=== PATIENT | female | born 1935 | race Caucasian/White ===

== ENCOUNTER 2019-04-07 09:07 | Emergency (ER) | payer SELFPAY ==
[2019-04-07 09:41] VITALS: BMI 24.4
--- NOTE | 2019-04-07 10:16 | PDOC ---
History of Present Illness - General Chief Complaint: Revisit,Radiology Variance Stated Complaint: CELLULITIES - History of Present Illness Initial Comments: Janki Ventura is an 83yo woman with a PMH of HTN, PAD s/p Rt AKA, DM2 with neuropathy who presents from [facility] due to a report of a left PT occlusion on arterial duplex compelted yesterday. Ms Ventura reports that she has had redness and swelling in the left leg for the past 1.5 months, and she had a test completed yesterday that showed a blood clot. Per nursing staff at [facility], Ms Ventura has been on antibiotics for LLE cellulitis. Due to her known PAD and a left posterior calf ulcer, she was sent yesterday for an arterial duplex. The duplex indicated occlusion of the left PT and 50% stenosis of the left common femoral a. The SNF sent her to the ED for additional evaluation, though no one at the facility was aware of any acute change in Ms Ventura' condition. Past History - Past Medical History Allergies/Adverse Reactions: Allergies Allergy/AdvReac Type Severity Reaction Status Date / Time No Known Allergies Allergy Verified 04/07/19 09:33 Cardiac Disorders: Yes (peripheral vascular disease. polyneuropathy.) COPD: Yes HTN: Yes Other medical history: vit D, peripheral vascular disease - Psycho Social/Smoking Cessation Hx Smoking History: Never smoked Have you smoked in the past 12 months: No Information on smoking cessation initiated: No Hx Alcohol Use: No Drug/Substance Use Hx: No Review of Systems - Review of Systems Comments:: General: No fevers, no chills, no weight or appetite change, no malaise HEENT: No changes in vision, no changes in hearing, no congestion, no sore throat CV: No chest pain, no palpitations, no LE edema Pulm: No SOB, no cough, no wheezing GI: No nausea or vomiting, no change in bowel habits, no melena : No frequency, no urgency, no dysuria Musc: No back pain, no joint swelling, no recent injury Skin: No rash, no lesions, no erythema Endo: No excessive thirst, no heat/cold intolerance Heme: No unusual bruising or bleeding, no swollen glands Neuro: No syncope, no numbness/tingling, no focal weakness Vasc: h/o PAD s/p RLE AKA Psych: No recent change in mood, no SI or HI *Physical Exam - Vital Signs Last Vital Signs Temp Pulse Resp BP Pulse Ox 97.9 F 50 L 16 189/73 H 97 04/07/19 09:10 04/07/19 09:10 04/07/19 09:10 04/07/19 09:10 04/07/19 09:10 - Physical Exam General: Comfortable, no acute distress HEENT: Atraumatic, PERRL, EOMI, MMM, voice normal, normal neck ROM Cards: RRR, no murmur appreciated Pulm: Comfortable on room air, clear to auscultation bilaterally Abd: Soft, nontender, nondistended Ext: s/p RLE AKA. LLE with 2+ pitting edema, erythema c/w cellulitis distal to knee. Ulcerated wound, irregular, approximately 2cm in diameter without bleeding or drainage on L calf. Left DP and PT not palpable secondary to edema but warm to touch, able to wiggle toes, intact sensation over toes Neuro: A&Ox3, CN grossly intact, normal speech, motor/sensory grossly intact and symmetric Psych: Mood appropriate to situation ED Treatment Course - LABORATORY CBC & Chemistry Diagram: 04/07/19 10:36 04/07/19 10:36 Medical Decision Making - Medical Decision Making 04/07/19 10:15 Janki Ventura is an 83yo woman with a PMH of HTN, PAD s/p Rt AKA, DM2 with neuropathy, currently undergoing treatment for LLE cellulitis who presents from [facility] due to a report of a left PT occlusion on arterial duplex. She denies any sudden changes in her foot color or temperature, loss of sensation, pain in the LLE, fever/chills. - Paperwork from [facility] indicates left [employer] S[employer] TE[employer]ER occlusion on arterial duplex yesterday, but on exam foot is warm, motor and neuro exams intact. Occlusion more likely to be chronic w/ collaterals than acute - Repeat arterial duplex as prior cannot be viewed here - No fever or other systemic symptoms suggesting sepsis from cellulitis. Has been on keflex - CBC, CMP, coags 04/07/19 11:25 - Spoke to healthcare proxy. Reports that the pt's LLE cellulitis looks markedly improved since she saw it last week - Labs reviewed. No concerning abnormalities - Duplex to be completed 04/07/19 12:36 - Duplex completed, read pending. Reviewed in ED. Notable for no flow in PT. Biphasic flow in left pop. 04/07/19 14:39 - Repeat arterial duplex with diffuse plaque, monophasic tracing with multiple stenotic lesions. Occlusion of the dsital SFA with reconstitution of flow in the pop. High grade focal stenosis in the CUSTOMER LIAISON and proximal popliteal. Flow detected in the MIDDLE SCHOOL TEACHER. - Dr Brown contacted by Dr Joseph. Pt OK to follow up as an outpatient. - Plan to d/c back to SNF Discussed with Dr Opal Hilton PGY2 Discharge - Discharge Information Problems reviewed: Yes Clinical Impression/Diagnosis: Peripheral arterial disease Condition: Stable Disposition: HOME - Admission No - Follow up/Referral Referrals: Kin Drake MD [Primary Care Provider] - Todd Brown MD [Non Staff, Medical] - - Patient Discharge Instructions Patient Printed Discharge Instructions: DI for Peripheral Vascular (Arterial) Disease Additional Instructions: Discharge Instructions: You were seen in the emergency department for evaluation of peripheral arterial disease. You had an ultrasound showing a blocked artery, but the ultrasounds showed that new arteries were providing blood flow around the blockage. Home Care: - Continue all of your regular home medications - You will need to follow up with vascular surgery for evaluation of your arterial disease. You have been given contact infomration for Dr Brown, or you can see a vascular surgeon recommended by your primary doctor - Seek immediate care if you have sudden change in the temperature of your foot , sensation in your foot, severe pain in your left leg, you are unable to wiggle your toes, you develop worsening redness/swelling in your leg or have fever to 101F or higher, or you have any other medical emergency. - Post Discharge Activity
[2019-04-07 11:08] LABS: BASO % 0.9 % (0-2.0); EOS % 1.4 % (0-4.5); HEMATOCRIT 44.2 % (32.4-45.2); HEMOGLOBIN 14.7 GM/dL (10.7-15.3); LYMPH % 22.9 % (8-40); MCH 29.7 pg (25.7-33.7); MCHC 33.2 g/dl (32.0-36.0); MEAN CELL VOLUME 89.5 fl (80-96); MEAN PLT VOLUME 9.3 fl (7.5-11.1); MONO % 7.3 % (3.8-10.2); NEUT % 67.5 % (42.8-82.8); PLATELET COUNT 306 K/MM3 (134-434); RBC 4.94 M/mm3 (3.60-5.2); RDW 13.9 % (11.6-15.6); WHITE BLOOD COUNT 7.6 K/mm3 (4.0-10.0)
[2019-04-07 11:17] LABS: ALBUMIN 3.4 g/dl (3.4-5.0); BILIRUBIN,TOTAL 0.3 mg/dL (0.2-1); BLOOD UREA NITROGEN 13.6 mg/dL (7-18); CALCIUM 9.6 mg/dL (8.5-10.1); CREATININE 0.6 mg/dL (0.55-1.3); INR 0.94 (0.83-1.09); POTASSIUM 4.4 mmol/L (3.5-5.1); PROTHROMBIN TIME (PATIENT) 11.1 SEC (9.7-13.0); TOT PROT 7.3 g/dl (6.4-8.2)
[2019-04-07 11:19] LABS: ACTIVATED PTT 34.9 SECONDS (25.2-36.5)
[2019-04-07 15:10] VITALS: TEMP 97.5
--- NOTE | 2019-04-07 16:01 | PDOC ---
Documentation entered by Dary Tran SCRIBE, acting as scribe for Sorin Joseph MD. Sorin Joseph MD: This documentation has been prepared by the Marc castanon Brenda, SCRIBE, under my direction and personally reviewed by me in its entirety. I confirm that the documentation accurately reflects all work, treatment, procedures, and medical decision making performed by me. Attending Attestation - Resident Resident Name: Chloe Hilton - ED Attending Attestation I have performed the following: I have examined & evaluated the patient, The case was reviewed & discussed with the resident, I agree w/resident's findings & plan, Exceptions are as noted - HPI HPI: 04/07/19 15:54 Agree with resident HPI - Physicial Exam PE: 04/07/19 15:54 GENERAL: Awake, alert, and fully oriented, in no acute distress. Very pleasant EYES: PERRLA, EOMI, sclera anicteric, conjunctiva clear ENT: Oropharynx clear without exudates. Moist mucosa NECK: Normal ROM, supple, no lymphadenopathy, JVD, or masses LUNGS: Breath sounds equal, clear to auscultation bilaterally. No wheezes, and no crackles HEART: Regular rate and rhythm, normal S1 and S2, no murmurs, rubs or gallops ABDOMEN: Soft, nontender, normoactive bowel sounds. No guarding, no rebound. No masses EXTREMITIES: R AKA, LLE warm, well perfused distally. Unable to palpate pulses, but able to see DP pulsation with US. Normal coloration in foot with normal strength and sensation, no ttp. Distal calf with mild erythema and warmth that pt states is improved, also L calf with 2 cm ulcerated dry wound with no discharge, malodor. NEUROLOGICAL: Normal speech, cranial nerves intact SKIN: As noted above - Medical Decision Making 04/07/19 15:58 83-year-old female presents to the emergency department with abnormal read on arterial ultrasound from [facility]. Reports states there is possible occlusion of left posterior tibial artery. Clinically, the patient does not have any evidence of acute occlusion as her left lower extremity is warm and well perfused with no pain, paresthesias. Her foot is neurovascularly intact. Of note, patient is currently being treated for cellulitis to the distal calf of this left lower extremity but per the patient and her family member the erythema has improved since she is been on Keflex, which she is still currently taking. Arterial ultrasound was repeated which shows severe arterial disease but no acute blockage. Case and ultrasound reports were discussed with Dr. Brown who recommends outpatient follow-up. Patient is very well-appearing and is eager for discharge back to [facility]. She will follow-up with the vascular team as they have already been consulted for her at [facility]. I discussed the physical exam findings, ancillary test results and final diagnoses with the patient. I answered all of the patient's questions. The patient was satisfied with the care received and felt comfortable with the discharge plan and treatment plan. The patient will call their primary care physician within 24 hours to arrange follow-up and will return to the Emergency Department with any new, persistent or worsening symptoms.
[2019-04-07 18:57] VITALS: BP 184/59; PULSE 65
== END 2019-04-07 16:48 ==
LOC: EDBD 09:07 → JER 09:07
DX: I73.89 Other specified peripheral vascular diseases (principal); L03.116 Cellulitis of left lower limb; I10 Essential (primary) hypertension; E11.42 Type 2 diabetes mellitus with diabetic polyneuropathy; E55.9 Vitamin D deficiency, unspecified; J44.9 Chronic obstructive pulmonary disease, unspecified
CPT/HCPCS: 36415; 80053; 85025; 85610; 85730; 87040; 93926-TC; 99283-25

== ENCOUNTER 2019-04-25 12:28 | Inpatient (IN) | payer SELFPAY ==
[2019-04-25 12:44] VITALS: BMI 20.9
--- NOTE | 2019-04-25 14:26 | PDOC ---
History of Present Illness - General Chief Complaint: Wound Stated Complaint: DVT Time Seen by Provider: 04/25/19 13:23 - History of Present Illness Initial Comments: 04/25/19 14:26 HPI: 83 y/o F with hx of HTN, PAD s/p right AKA, DM presenting from [facility] for further evaluation of her LLE PAD and ulcer. She reports previous workup that checked her vascularity and she requires improved circulation. She states her leg swelling has been improving but her wound is the same. She denies fever, chills, chest pain, SOB, abd pain, n/v, joint pain. PMHx: as noted above ROS: as noted SHx: 3 cigarette/day use; no alcohol use; no rec drugs Allergies: NKDA ROS: GENERAL/CONSTITUTIONAL: No fever or chills. No weakness. HEAD, EYES, EARS, NOSE AND THROAT: No change in vision. No ear pain or discharge. No sore throat. CARDIOVASCULAR: No chest pain or shortness of breath RESPIRATORY: No cough, wheezing, or hemoptysis. GASTROINTESTINAL: No nausea, vomiting, diarrhea or constipation. GENITOURINARY: No dysuria, frequency, or change in urination. MUSCULOSKELETAL: No joint or muscle swelling or pain. No neck or back pain. SKIN: +LLE wound and redness NEUROLOGIC: No headache, vertigo, loss of consciousness, or change in strength/ sensation. ENDOCRINE: No increased thirst. No abnormal weight change HEMATOLOGIC/LYMPHATIC: No anemia, easy bleeding, or history of blood clots. ALLERGIC/IMMUNOLOGIC: No hives or skin allergy. PE: GENERAL: Awake, alert, and fully oriented, no acute distress HEAD: No signs of trauma, normocephalic, atraumatic EYES: EOMI, sclera anicteric, conjunctiva clear ENT: Auricles normal inspection, hearing grossly normal, nares patent, oropharynx clear without exudates. Moist mucosa NECK: Normal ROM, no lymphadenopathy LUNGS: No increased work of breathing, symmetrical chest rise, clear to auscultation bilaterally, no wheezes, crackles or rhonchi HEART: Regular rate and rhythm, normal S1 and S2, no murmurs, peripheral pulses 2+ and equal bilaterally. ABDOMEN: Soft, nondistended, nontender, normoactive bowel sounds. No guarding, no rebound. No masses. No CVAT MUSCULOSKELETAL: RLE AKA. LLE with 1+ pitting edema, erythema distally to knee. Ulcerated wound, irregular, approximately 2cm in diameter without bleeding or drainage on L calf, nontender. Left DP and PT 1+thready pulse, sensation intact , ROM intact NEUROLOGICAL: Cranial nerves II through XII grossly intact. Normal speech, normal gait, no focal sensorimotor deficits SKIN: Warm, Dry, normal turgor, no rashes or lesions noted Past History - Past Medical History Allergies/Adverse Reactions: Allergies Allergy/AdvReac Type Severity Reaction Status Date / Time No Known Allergies Allergy Verified 04/07/19 09:33 Home Medications: Ambulatory Orders Aa/Hydrolyzed Collagen, Whey [Lps Neutral Flavor Liquid] 30 ml PO BID 04/20/19 Acetaminophen [Tylenol .Extra-Strength -] 1,000 mg PO Q8H PRN 04/20/19 Ammonium Lactate Cream [Lac-Hydrin 12% Cream -] 1 appful TP BID 04/20/19 Ascorbic Acid [Vitamin C -] 1 tab PO DAILY 04/20/19 Aspirin [ASA -] 81 mg PO DAILY 04/20/19 Chlorhexidine Gluconate [Hibiclens For Decolonization -] 1 applic TP BID Lactobacillus Acidophilus [Bacid -] 1 tab PO BID 04/20/19 Magnesium Hydroxide [Milk of Magnesia] 30 ml PO DAILY PRN 04/20/19 Multivitamin [Multiple Vitamins] 1 tab PO DAILY 04/20/19 Mupirocin Ointment [Bactroban 2% Ointment -] 1 appful TP BID 04/20/19 Sennosides [Senna -] 1 tab PO DAILY PRN 04/20/19 Zinc 220 mg PO DAILY 04/20/19 Cardiac Disorders: Yes (peripheral vascular disease. polyneuropathy.) COPD: Yes Diabetes: Yes HTN: Yes - Surgical History Orthopedic Surgery: Yes (Right AKA 2 yrs ago) - Psycho Social/Smoking Cessation Hx Smoking History: Former smoker Have you smoked in the past 12 months: No Number of Cigarettes Smoked Daily: 5 Information on smoking cessation initiated: No Hx Alcohol Use: No Drug/Substance Use Hx: No *Physical Exam - Vital Signs Last Vital Signs Temp Pulse Resp BP Pulse Ox 98.7 F 58 L 18 174/54 H 99 04/25/19 12:45 04/25/19 12:31 04/25/19 12:31 04/25/19 12:31 04/25/19 12:31 ED Treatment Course - LABORATORY CBC & Chemistry Diagram: 04/25/19 16:00 04/25/19 16:00 Medical Decision Making - Medical Decision Making 04/25/19 15:51 83 y/o F with hx of HTN, PAD s/p right AKA, DM presenting from [facility] for further evaluation of her LLE PAD and ulcer. VSS, AF. PE with right AKA and LLE erythema distal to knee with calf ulcer. Discussed with Dr Brown and patient will need admission for further eval and management -cbc, cmp, coags, ekg, cxr, t&s -CTA aorta with BL runoffs -cardio consult for clearance -will admit 04/25/19 18:37 admitted to tele under dr Ochoa Discharge - Discharge Information Problems reviewed: Yes Clinical Impression/Diagnosis: PAD (peripheral artery disease) Non-healing ulcer Qualifiers: Non-pressure ulcer stage: unspecified non-pressure ulcer stage Qualified Code(s ): L98.499 - Non-pressure chronic ulcer of skin of other sites with unspecified severity Condition: Stable - Admission Yes - Follow up/Referral - Patient Discharge Instructions - Post Discharge Activity
[2019-04-25 16:35] LABS: BASO % 0.7 % (0-2.0); EOS % 1.2 % (0-4.5); HEMOGLOBIN 15.1 GM/dL (10.7-15.3); LYMPH % 24.7 % (8-40); MCH 30.2 pg (25.7-33.7); MCHC 33.5 g/dl (32.0-36.0); MEAN CELL VOLUME 89.9 fl (80-96); MEAN PLT VOLUME 9.6 fl (7.5-11.1); MONO % 6.4 % (3.8-10.2); PLATELET COUNT 308 K/MM3 (134-434); RBC 5.01 M/mm3 (3.60-5.2); RDW 14.3 % (11.6-15.6)
[2019-04-25 16:50] LABS: ALBUMIN 3.9 g/dl (3.4-5.0); BILIRUBIN,TOTAL 0.4 mg/dL (0.2-1); BLOOD UREA NITROGEN 9.1 mg/dL (7-18); CALCIUM 9.3 mg/dL (8.5-10.1); CREATININE 0.7 mg/dL (0.55-1.3); INR 0.97 (0.83-1.09); POTASSIUM 4.2 mmol/L (3.5-5.1); PROTHROMBIN TIME (PATIENT) 11.5 SEC (9.7-13.0)
[2019-04-25 16:53] LABS: ACTIVATED PTT 33.7 SECONDS (25.2-36.5)
--- NOTE | 2019-04-25 17:23 | PDOC ---
Documentation entered by Dominik Hernandez SCRIBE, acting as scribe for Jie Carlson MD. Jie Carlson MD: This documentation has been prepared by the David castanon Xhesika, SCRIBE, under my direction and personally reviewed by me in its entirety. I confirm that the documentation accurately reflects all work, treatment, procedures, and medical decision making performed by me. Attending Attestation - Resident Resident Name: TonAlexander - ED Attending Attestation I have performed the following: I have examined & evaluated the patient, The case was reviewed & discussed with the resident, I agree w/resident's findings & plan, Exceptions are as noted - HPI HPI: 04/25/19 15:42 The patient is a 83 year old female with a PMH of HTN, PAD s/p Rt AKA, DM2 with neuropathy who presents from [facility] for reevaluation/ admission for peripheral arterial disease and multiple stenotic lesions. Pt reports edema and erythema of the LLE for the past 2 months. Pt was seen here in the ED 04/07/19 for LLE cellulitis and US showed severe peripheral arterial disease. The patient denies chest pain, shortness of breath, headache and dizziness. Denies fever, chills, cough, nausea, vomiting, diarrhea and constipation. Denies dysuria, frequency, urgency and hematuria. Allergies: NKDA Vascular: Dr. Brown - Physicial Exam PE: 04/25/19 17:19 GENERAL: Awake, alert, and fully oriented, no acute distress HEAD: No signs of trauma EYES: EOMI, sclera anicteric, conjunctiva clear ENT: Auricles normal inspection, hearing grossly normal, nares patent, oropharynx clear without exudates. Moist mucosa NECK: Normal ROM, no lymphadenopathy LUNGS: No increased work of breathing, symmetrical chest rise HEART: Regular rate and rhythm, normal S1 and S2 ABDOMEN: Soft, nondistended, nontender, normoactive bowel sounds. No guarding, no rebound. No masses. No CVAT MUSCULOSKELETAL: RLE AKA. LLE with 1+ pitting edema, erythema distally to knee. Ulcerated wound, irregular, approximately 2cm in diameter without bleeding or drainage. Left DP and PT 1+thready pulse, sensation intact, ROM intact NEUROLOGICAL: Cranial nerves II through XII grossly intact. Normal speech, normal gait, no focal sensorimotor deficits SKIN: as above - Medical Decision Making 04/25/19 17:20 83 y/o F with hx of HTN, PAD s/p right AKA, DM presenting from [facility] for further evaluation of her LLE PAD and ulcer. Case discussed with Dr Brown He would like patient to be admitted for further evaluation including CTA Aorta with bilateral run offs Labs CTA EKG Admit Laboratory Tests 04/25/19 04/25/19 16:00 16:00 WBC 8.0 Hgb 15.1 Hct 45.0 Plt Count 308 BUN 9.1 Creatinine 0.7 04/25/19 17:21 CTA pending Will admit
[2019-04-25] MEDS ORDERED: SENNOSIDES 8.6MG TABLET (FP) PO PRN (18:35)
--- NOTE | 2019-04-25 18:40 | HP ---
<SoledadFaith - Last Filed: 04/25/19 19:31> Hospitalist Medicine Admission 83 y/o F with hx of HTN, PAD s/p right AKA, DM presenting from [facility] for further evaluation of LLE PAD and ulcer. Per proxy at bedside, pt had been experiencing erythema, edema in the LLE over the past few months. Pt did not endorse any other sx. Also with approx 3x4cm, irreg border ulcer located near the posterior aspect of her L heel. For this reason, pt saw Dr. Brown recently and underwent art duplex which revealed abnormal monophasic flow in common femoral a, limited flow in superficial femoral, popliteal, posterior tibial aa and was sent in today for pre-op w/u/ clearance and aorta CTA w/ runoff for possible vascular procedure. Was recommended to continue santyl in meanwhile. Pt denies other sx; no CLANCY, fever, chills, SOB, chest pain or pressure or changes in urinary or bowel function. Of note, pt was homeless prior to her stay at [facility]. Her HCP is Valentina Limon, a close friend. Her phone # is [phone]. PMH: as above PsxH: R AKA meds: as in chart, from [facility] allergies: NKDA FH: does not know SH: smokes 4-5 cigs/ day. denies alcohol or drug use Allergies No Known Allergies Allergy (Verified 04/07/19 09:33) HOME MEDICATIONS: Home Medications Medication Instructions Recorded Aa/Hydrolyzed Collagen, Whey [Lps 30 ml PO BID 04/20/19 Neutral Flavor Liquid] Acetaminophen [Tylenol 1,000 mg PO Q8H PRN 04/20/19 .Extra-Strength -] Ammonium Lactate Cream [Lac-Hydrin 1 appful TP BID 04/20/19 12% Cream -] Ascorbic Acid [Vitamin C -] 1 tab PO DAILY 04/20/19 Aspirin [ASA -] 81 mg PO DAILY 04/20/19 Chlorhexidine Gluconate [Hibiclens 1 applic TP BID 04/20/19 For Decolonization -] Lactobacillus Acidophilus [Bacid -] 1 tab PO BID 04/20/19 Magnesium Hydroxide [Milk of 30 ml PO DAILY PRN 04/20/19 Magnesia] Multivitamin [Multiple Vitamins] 1 tab PO DAILY 04/20/19 Mupirocin Ointment [Bactroban 2% 1 appful TP BID 04/20/19 Ointment -] Sennosides [Senna -] 1 tab PO DAILY PRN 04/20/19 Zinc 220 mg PO DAILY 04/20/19 PHYSICAL EXAMINATION Vital Signs - 24 hr 04/25/19 04/25/19 04/25/19 12:31 12:45 16:52 Temperature 98.7 F Pulse Rate 58 L Respiratory 18 Rate Blood Pressure 174/54 H O2 Sat by Pulse 99 98 Oximetry (%) general: resting in bed, in NAD. disheveled HEENT: NCAT, PERRLA neck: supple cardio: S1, S2, RRR. no r/m/g pulm: CTA b/l. no accessory m usage abdomen: nontender, nondistended LE: 1+ pulses LLE. 2+ RLE, 3x4cm, irreg border ulcer at base of L heel w/ fibrous tissue, no drainage +LLE erythema, edema Laboratory Results - last 24 hr 04/25/19 04/25/19 04/25/19 16:00 16:00 16:00 WBC 8.0 RBC 5.01 Hgb 15.1 Hct 45.0 MCV 89.9 MCH 30.2 MCHC 33.5 RDW 14.3 Plt Count 308 MPV 9.6 Absolute Neuts (auto) 5.4 Neutrophils % 67.0 Lymphocytes % 24.7 Monocytes % 6.4 Eosinophils % 1.2 Basophils % 0.7 Nucleated RBC % 0 PT with INR 11.50 INR 0.97 PTT (Actin FS) 33.7 Sodium 138 Potassium 4.2 Chloride 102 Carbon Dioxide 32 Anion Gap 4 L BUN 9.1 Creatinine 0.7 Est GFR (CKD-EPI)AfAm 94.18 Est GFR (CKD-EPI)NonAf 81.26 Random Glucose 92 Calcium 9.3 Total Bilirubin 0.4 AST 23 ALT 34 Alkaline Phosphatase 144 H Total Protein 8.0 Albumin 3.9 Blood Type Antibody Screen ASSESSMENT/PLAN: 83 y/o F with hx of HTN, PAD s/p right AKA, DM presenting from [facility] for further evaluation of LLE PAD and ulcer. #LLE PAD, ulcer -MCDONALD score: 0.1%; risk of ID or cardiac arrest intraop or up to 30 days post- op -high risk sx: vascular -less than 4 mets; needs frequent assistance -will need cardiac pre-op clearance, f/u ECHO, lipid profile, a1c, serial EKGs; initial with sinus fabi - rate 50's -tele monitoring for events -f/u abdomen CTA result -f/u ESR, CRP, vascular checks q2h -f/u duplex LE -hold ASA in case of procedure -Vascular on board: Dr. Brown -cardio on board: Dr. Nayak -T+S, diabetic diet (still needs stratification, make NPO once workup complete) -PT, PTT -c/w santyl application to wound -does not look infected at this time, no white count, afebrile; will not give abx #HTN- uncontrolled -c/t monitor -repeat before starting agent #DM -hx DM -ISS, BGM ACHS -has had poor f/u -f/u a1c #F/E/N does not require IVF at this time continue to follow lytes diabetic diet #PPX DVT: hep 5k tid, hold before sx #Dispo admit to tele; as pt with fabi. check for events Visit type - Emergency Visit Emergency Visit: Yes ED Registration Date: 04/25/19 Care time: The patient presented to the Emergency Department on the above date and was hospitalized for further evaluation of their emergent condition. - New Patient This patient is new to me today: Yes Date on this admission: 04/25/19 - Critical Care Critical Care patient: No <Richard Ochoa - Last Filed: 04/28/19 04:18> CHIEF COMPLAINT: PCP: HISTORY OF PRESENT ILLNESS: ER course was notable for: (1) (2) (3) Recent Travel: PAST MEDICAL HISTORY: PAST SURGICAL HISTORY: Social History: Smoking: Alcohol: Drugs: Allergies No Known Allergies Allergy (Verified 04/07/19 09:33) HOME MEDICATIONS: Home Medications Medication Instructions Recorded Aa/Hydrolyzed Collagen, Whey [Lps 30 ml PO BID 04/20/19 Neutral Flavor Liquid] Acetaminophen [Tylenol 1,000 mg PO Q8H PRN 04/20/19 .Extra-Strength -] Ammonium Lactate Cream [Lac-Hydrin 1 appful TP BID 04/20/19 12% Cream -] Ascorbic Acid [Vitamin C -] 1 tab PO DAILY 04/20/19 Aspirin [ASA -] 81 mg PO DAILY 04/20/19 Chlorhexidine Gluconate [Hibiclens 1 applic TP BID 04/20/19 For Decolonization -] Lactobacillus Acidophilus [Bacid -] 1 tab PO BID 04/20/19 Magnesium Hydroxide [Milk of 30 ml PO DAILY PRN 04/20/19 Magnesia] Multivitamin [Multiple Vitamins] 1 tab PO DAILY 04/20/19 Mupirocin Ointment [Bactroban 2% 1 appful TP BID 04/20/19 Ointment -] Sennosides [Senna -] 1 tab PO DAILY PRN 04/20/19 Zinc 220 mg PO DAILY 04/20/19 REVIEW OF SYSTEMS CONSTITUTIONAL: Absent: fever, chills, diaphoresis, generalized weakness, malaise, loss of appetite, weight change HEENT: Absent: rhinorrhea, nasal congestion, throat pain, throat swelling, difficulty swallowing, mouth swelling, ear pain, eye pain, visual changes CARDIOVASCULAR: Absent: chest pain, syncope, palpitations, irregular heart rate, lightheadedness , peripheral edema RESPIRATORY: Absent: cough, shortness of breath, dyspnea with exertion, orthopnea, wheezing, stridor, hemoptysis GASTROINTESTINAL: Absent: abdominal pain, abdominal distension, nausea, vomiting, diarrhea, constipation, melena, hematochezia GENITOURINARY: Absent: dysuria, frequency, urgency, hesitancy, hematuria, flank pain, genital pain MUSCULOSKELETAL: Absent: myalgia, arthralgia, joint swelling, back pain, neck pain SKIN: Absent: rash, itching, pallor HEMATOLOGIC/IMMUNOLOGIC: Absent: easy bleeding, easy bruising, lymphadenopathy, frequent infections ENDOCRINE: Absent: unexplained weight gain, unexplained weight loss, heat intolerance, cold intolerance NEUROLOGIC: Absent: headache, focal weakness or paresthesias, dizziness, unsteady gait, seizure, mental status changes, bladder or bowel incontinence PSYCHIATRIC: Absent: anxiety, depression, suicidal or homicidal ideation, hallucinations. PHYSICAL EXAMINATION Vital Signs - 24 hr 04/25/19 04/25/19 04/25/19 12:31 12:45 16:52 Temperature 98.7 F Pulse Rate 58 L Pulse Rate [ Left Radial] Respiratory 18 Rate Blood Pressure 174/54 H Blood Pressure [Right Arm] O2 Sat by Pulse 99 98 Oximetry (%) 04/25/19 04/26/19 21:28 02:10 Temperature 98.2 F 98.0 F Pulse Rate Pulse Rate [ 60 68 Left Radial] Respiratory 18 20 Rate Blood Pressure Blood Pressure 130/68 121/70 [Right Arm] O2 Sat by Pulse 98 98 Oximetry (%) GENERAL: Awake, alert, and fully oriented, in no acute distress. HEAD: Normal with no signs of trauma. EYES: Pupils equal, round and reactive to light, extraocular movements intact, sclera anicteric, conjunctiva clear. No lid lag. EARS, NOSE, THROAT: Ears normal, nares patent, oropharynx clear without exudates. Moist mucous membranes. NECK: Normal range of motion, supple without lymphadenopathy, JVD, or masses. LUNGS: Breath sounds equal, clear to auscultation bilaterally. No wheezes, and no crackles. No accessory muscle use. HEART: Regular rate and rhythm, normal S1 and S2 without murmur, rub or gallop. ABDOMEN: Soft, nontender, not distended, normoactive bowel sounds, no guarding, no rebound, no masses. No hepatomegaly or splenomegaly. MUSCULOSKELETAL: Normal range of motion at all joints. No bony deformities or tenderness. No CVA tenderness. UPPER EXTREMITIES: 2+ pulses, warm, well-perfused. No cyanosis. No clubbing. No peripheral edema. LOWER EXTREMITIES: 2+ pulses, warm, well-perfused. No calf tenderness. No peripheral edema. NEUROLOGICAL: Cranial nerves II-XII intact. Normal speech. Normal gait. PSYCHIATRIC: Cooperative. Good eye contact. Appropriate mood and affect. SKIN: Warm, dry, normal turgor, no rashes or lesions noted, normal capillary refill. Laboratory Results - last 24 hr 04/25/19 04/25/19 04/25/19 16:00 16:00 16:00 WBC 8.0 RBC 5.01 Hgb 15.1 Hct 45.0 MCV 89.9 MCH 30.2 MCHC 33.5 RDW 14.3 Plt Count 308 MPV 9.6 Absolute Neuts (auto) 5.4 Neutrophils % 67.0 Lymphocytes % 24.7 Monocytes % 6.4 Eosinophils % 1.2 Basophils % 0.7 Nucleated RBC % 0 ESR PT with INR 11.50 INR 0.97 PTT (Actin FS) 33.7 Sodium 138 Potassium 4.2 Chloride 102 Carbon Dioxide 32 Anion Gap 4 L BUN 9.1 Creatinine 0.7 Est GFR (CKD-EPI)AfAm 94.18 Est GFR (CKD-EPI)NonAf 81.26 POC Glucometer Random Glucose 92 Hemoglobin A1c % Calcium 9.3 Total Bilirubin 0.4 AST 23 ALT 34 Alkaline Phosphatase 144 H C-Reactive Protein 0.8 H Total Protein 8.0 Albumin 3.9 Triglycerides 69 Cholesterol 191 Total LDL Cholesterol 104 H HDL Cholesterol 72 H Blood Type Antibody Screen 04/25/19 04/25/19 04/25/19 16:00 16:00 16:00 WBC RBC Hgb Hct MCV MCH MCHC RDW Plt Count MPV Absolute Neuts (auto) Neutrophils % Lymphocytes % Monocytes % Eosinophils % Basophils % Nucleated RBC % ESR 16 PT with INR INR PTT (Actin FS) Sodium Potassium Chloride Carbon Dioxide Anion Gap BUN Creatinine Est GFR (CKD-EPI)AfAm Est GFR (CKD-EPI)NonAf POC Glucometer Random Glucose Hemoglobin A1c % 5.8 Calcium Total Bilirubin AST ALT Alkaline Phosphatase C-Reactive Protein Total Protein Albumin Triglycerides Cholesterol Total LDL Cholesterol HDL Cholesterol Blood Type B POSITIVE Antibody Screen Negative 04/25/19 04/25/19 04/25/19 20:25 20:25 23:34 WBC RBC Hgb Hct MCV MCH MCHC RDW Plt Count MPV Absolute Neuts (auto) Neutrophils % Lymphocytes % Monocytes % Eosinophils % Basophils % Nucleated RBC % ESR PT with INR 12.40 INR 1.05 PTT (Actin FS) 35.4 Sodium Potassium Chloride Carbon Dioxide Anion Gap BUN Creatinine Est GFR (CKD-EPI)AfAm Est GFR (CKD-EPI)NonAf POC Glucometer 112 Random Glucose Hemoglobin A1c % Calcium Total Bilirubin AST ALT Alkaline Phosphatase C-Reactive Protein Total Protein Albumin Triglycerides Cholesterol Total LDL Cholesterol HDL Cholesterol Blood Type B POSITIVE Antibody Screen 04/26/19 05:38 WBC 8.1 RBC 4.77 Hgb 14.4 Hct 42.1 MCV 88.3 MCH 30.1 MCHC 34.1 RDW 13.8 Plt Count 276 MPV 9.5 Absolute Neuts (auto) 5.9 Neutrophils % 72.8 Lymphocytes % 16.4 D Monocytes % 7.6 Eosinophils % 1.3 Basophils % 1.9 Nucleated RBC % 0 ESR PT with INR INR PTT (Actin FS) Sodium Potassium Chloride Carbon Dioxide Anion Gap BUN Creatinine Est GFR (CKD-EPI)AfAm Est GFR (CKD-EPI)NonAf POC Glucometer Random Glucose Hemoglobin A1c % Calcium Total Bilirubin AST ALT Alkaline Phosphatase C-Reactive Protein Total Protein Albumin Triglycerides Cholesterol Total LDL Cholesterol HDL Cholesterol Blood Type Antibody Screen ASSESSMENT/PLAN: Seen and examined; please refer to resident note for further historical information. I agree with the aforementioned assessment and plan and historical information aside from as supplemented by myself. Independently verified all redd exam findings and diagnostics. I discussed the case at length with the resident and agree with the plan as outlined. Agree with above subjective information 10 sys ROS done and negative aside from HPI VS, labs, imaging reviewed NAD AAO resting in bed NC AT EOMI PERRLA HR wnl, s1/2+ NT ND +BS CN2-12 wnl, no fnd Normal mood, appropriate behavior Ulcer noted with surrounding cellulitic changes and reduced LE pulses b/l Assessment and plan: 83 y/o F with hx of HTN, PAD s/p right AKA, DM presenting from [facility] for further evaluation of LLE PAD and ulcer. Likely requires operative intervention Agree with above problem list and plan ATTENDING PHYSICIAN STATEMENT I saw and evaluated the patient. I reviewed the resident's note and discussed the case with the resident. I agree with the resident's findings and plan as documented. SUBJECTIVE: OBJECTIVE: ASSESSMENT AND PLAN:
[2019-04-25] MEDS ORDERED: LISINOPRIL 5 MG TABLET (FP) PO SCH (19:15)
[2019-04-25 21:33] LABS: INR 1.05 (0.83-1.09); PROTHROMBIN TIME (PATIENT) 12.4 SEC (9.7-13.0)
[2019-04-25 21:36] LABS: ACTIVATED PTT 35.4 SECONDS (25.2-36.5)
[2019-04-25] MEDS ORDERED: HEPARIN NA (PORCINE) 5,000 UNITS/ML 1ML VIAL ONE (23:18)
[2019-04-25] MEDS: AMMONIUM LACTATE 12% CREAM 140 GM TUBE TP SCH (23:37)
[2019-04-25] MEDS: LACTOBACILLUS ACIDOPHILUS 1 TABLET PO SCH (23:37)
[2019-04-25] MEDS: COLLAGENASE CLOSTRIDIUM HIST. 30 GRAMS TUBE TP SCH (23:37)
[2019-04-25] MEDS: HEPARIN NA (PORCINE) 5,000 UNITS/ML 1ML VIAL SQ SCH (23:37)
[2019-04-25] MEDS: INSULIN SLIDING SCALE (NOVOLOG) 1 VIAL SQ SCH (23:37)
[2019-04-26 06:44] LABS: BASO % 1.9 % (0-2.0); EOS % 1.3 % (0-4.5); HEMATOCRIT 42.1 % (32.4-45.2); HEMOGLOBIN 14.4 GM/dL (10.7-15.3); LYMPH % 16.4 % (8-40); MCH 30.1 pg (25.7-33.7); MCHC 34.1 g/dl (32.0-36.0); MEAN CELL VOLUME 88.3 fl (80-96); MEAN PLT VOLUME 9.5 fl (7.5-11.1); MONO % 7.6 % (3.8-10.2); NEUT % 72.8 % (42.8-82.8); PLATELET COUNT 276 K/MM3 (134-434); RBC 4.77 M/mm3 (3.60-5.2); RDW 13.8 % (11.6-15.6); WHITE BLOOD COUNT 8.1 K/mm3 (4.0-10.0)
[2019-04-26] MEDS: HEPARIN NA (PORCINE) 5,000 UNITS/ML 1ML VIAL SQ SCH ×3 (06:45→21:36)
[2019-04-26 07:11] LABS: ALBUMIN 3.4 g/dl (3.4-5.0); BILIRUBIN,TOTAL 0.4 mg/dL (0.2-1); BLOOD UREA NITROGEN 15.9 mg/dL (7-18); CALCIUM 9.3 mg/dL (8.5-10.1); CREATININE 0.6 mg/dL (0.55-1.3); MAGNESIUM 2.2 mg/dL (1.8-2.4); PHOSPHOROUS 4.4 mg/dL (2.5-4.9); POTASSIUM 4.4 mmol/L (3.5-5.1); TOT PROT 6.9 g/dl (6.4-8.2)
[2019-04-26] MEDS: INSULIN SLIDING SCALE (NOVOLOG) 1 VIAL SQ SCH ×4 (08:10→21:39)
--- NOTE | 2019-04-26 10:30 | PN ---
Progress Note (short form) - Note Progress Note: no c/o pain in left leg sitting up in chair events noted pt examined in ER Vital Signs - 24 hr 04/25/19 04/25/19 04/25/19 12:31 12:45 16:52 Temperature 98.7 F Pulse Rate 58 L Pulse Rate [ Left Radial] Respiratory 18 Rate Blood Pressure 174/54 H Blood Pressure [Right Arm] O2 Sat by Pulse 99 98 Oximetry (%) 04/25/19 04/26/19 04/26/19 21:28 02:10 07:16 Temperature 98.2 F 98.0 F 98.2 F Pulse Rate Pulse Rate [ 60 68 60 Left Radial] Respiratory 18 20 17 Rate Blood Pressure Blood Pressure 130/68 121/70 173/65 H [Right Arm] O2 Sat by Pulse 98 98 99 Oximetry (%) Current Medications Generic Name Dose Route Start Last Admin Trade Name Freq PRN Reason Stop Dose Admin Collagenase 1 applic 04/25/19 18:45 04/25/19 23:37 Santyl - TP 1 applic DAILY ANNEL Administration Protocol Heparin Sodium (Porcine) 5,000 unit 04/25/19 22:00 04/26/19 06:45 Heparin - SQ 5,000 unit TID ANNEL Administration Insulin Aspart 1 vial 04/25/19 22:00 04/26/19 08:10 Novolog Vial Sliding Scale - SQ Not Given ACHS ANNEL Protocol Lactic Acid 1 applic 04/25/19 22:00 04/25/19 23:37 Lac-Hydrin 12% Cream - TP 1 applic BID ANNEL Administration Lactobacillus Acidophilus 1 tab 04/25/19 22:00 04/25/19 23:37 Bacid - PO 1 tab BID ANNEL Administration Senna 1 tab 04/25/19 18:35 Senna - PO DAILY PRN CONSTIPATION Laboratory Results - last 24 hr 04/25/19 04/25/19 04/25/19 16:00 16:00 16:00 WBC 8.0 RBC 5.01 Hgb 15.1 Hct 45.0 MCV 89.9 MCH 30.2 MCHC 33.5 RDW 14.3 Plt Count 308 MPV 9.6 Absolute Neuts (auto) 5.4 Neutrophils % 67.0 Lymphocytes % 24.7 Monocytes % 6.4 Eosinophils % 1.2 Basophils % 0.7 Nucleated RBC % 0 ESR PT with INR 11.50 INR 0.97 PTT (Actin FS) 33.7 Sodium 138 Potassium 4.2 Chloride 102 Carbon Dioxide 32 Anion Gap 4 L BUN 9.1 Creatinine 0.7 Est GFR (CKD-EPI)AfAm 94.18 Est GFR (CKD-EPI)NonAf 81.26 POC Glucometer Random Glucose 92 Hemoglobin A1c % Calcium 9.3 Phosphorus Magnesium Total Bilirubin 0.4 AST 23 ALT 34 Alkaline Phosphatase 144 H C-Reactive Protein 0.8 H Total Protein 8.0 Albumin 3.9 Triglycerides 69 Cholesterol 191 Total LDL Cholesterol 104 H HDL Cholesterol 72 H Blood Type Antibody Screen 04/25/19 04/25/19 04/25/19 16:00 16:00 16:00 WBC RBC Hgb Hct MCV MCH MCHC RDW Plt Count MPV Absolute Neuts (auto) Neutrophils % Lymphocytes % Monocytes % Eosinophils % Basophils % Nucleated RBC % ESR 16 PT with INR INR PTT (Actin FS) Sodium Potassium Chloride Carbon Dioxide Anion Gap BUN Creatinine Est GFR (CKD-EPI)AfAm Est GFR (CKD-EPI)NonAf POC Glucometer Random Glucose Hemoglobin A1c % 5.8 Calcium Phosphorus Magnesium Total Bilirubin AST ALT Alkaline Phosphatase C-Reactive Protein Total Protein Albumin Triglycerides Cholesterol Total LDL Cholesterol HDL Cholesterol Blood Type B POSITIVE Antibody Screen Negative 04/25/19 04/25/19 04/25/19 20:25 20:25 23:34 WBC RBC Hgb Hct MCV MCH MCHC RDW Plt Count MPV Absolute Neuts (auto) Neutrophils % Lymphocytes % Monocytes % Eosinophils % Basophils % Nucleated RBC % ESR PT with INR 12.40 INR 1.05 PTT (Actin FS) 35.4 Sodium Potassium Chloride Carbon Dioxide Anion Gap BUN Creatinine Est GFR (CKD-EPI)AfAm Est GFR (CKD-EPI)NonAf POC Glucometer 112 Random Glucose Hemoglobin A1c % Calcium Phosphorus Magnesium Total Bilirubin AST ALT Alkaline Phosphatase C-Reactive Protein Total Protein Albumin Triglycerides Cholesterol Total LDL Cholesterol HDL Cholesterol Blood Type B POSITIVE Antibody Screen 04/26/19 04/26/19 04/26/19 05:38 05:38 07:57 WBC 8.1 RBC 4.77 Hgb 14.4 Hct 42.1 MCV 88.3 MCH 30.1 MCHC 34.1 RDW 13.8 Plt Count 276 MPV 9.5 Absolute Neuts (auto) 5.9 Neutrophils % 72.8 Lymphocytes % 16.4 D Monocytes % 7.6 Eosinophils % 1.3 Basophils % 1.9 Nucleated RBC % 0 ESR PT with INR INR PTT (Actin FS) Sodium 140 Potassium 4.4 Chloride 106 Carbon Dioxide 29 Anion Gap 5 L BUN 15.9 Creatinine 0.6 Est GFR (CKD-EPI)AfAm 99.07 Est GFR (CKD-EPI)NonAf 85.48 POC Glucometer 94 Random Glucose 101 Hemoglobin A1c % Calcium 9.3 Phosphorus 4.4 Magnesium 2.2 Total Bilirubin 0.4 AST 17 ALT 26 Alkaline Phosphatase 126 H C-Reactive Protein Total Protein 6.9 Albumin 3.4 Triglycerides Cholesterol Total LDL Cholesterol HDL Cholesterol Blood Type Antibody Screen S1 S2 RRR Lungs clear Abd-soft, NT edema left leg-- erythema, not warm or tender Right AKA ulcer in posterior left leg PLAN Aorta with CTA done-- report pending CXR - negative for infiltrate or congestion sono negative for DVT Echo pending ekg- sinus bradycardia-- same as previous Cardiology eval for clearance possible surgery tomorrow continue with meds vascular eval heparin sc for DVT prophylaxis Problem List - Problems (1) Diabetes Code(s): E11.9 - TYPE 2 DIABETES MELLITUS WITHOUT COMPLICATIONS (2) Peripheral arterial occlusive disease Code(s): I77.9 - DISORDER OF ARTERIES AND ARTERIOLES, UNSPECIFIED (3) Right above-knee amputee Code(s): Z89.611 - ACQUIRED ABSENCE OF RIGHT LEG ABOVE KNEE (4) Peripheral arterial disease Code(s): I73.9 - PERIPHERAL VASCULAR DISEASE, UNSPECIFIED
[2019-04-26] MEDS: LACTOBACILLUS ACIDOPHILUS 1 TABLET PO SCH ×2 (11:37→21:39)
[2019-04-26] MEDS: COLLAGENASE CLOSTRIDIUM HIST. 30 GRAMS TUBE TP SCH (11:38)
[2019-04-26] MEDS: AMMONIUM LACTATE 12% CREAM 140 GM TUBE TP SCH ×2 (11:38→21:39)
--- NOTE | 2019-04-26 11:55 | EKG ---
Test Reason : Blood Pressure : / mmHG Vent. Rate : 055 BPM Atrial Rate : 055 BPM P-R Int : 150 ms QRS Dur : 090 ms QT Int : 444 ms P-R-T Axes : 064 052 047 degrees QTc Int : 424 ms SINUS BRADYCARDIA NONSPECIFIC T WAVE ABNORMALITY ABNORMAL ECG NO PREVIOUS ECGS AVAILABLE Confirmed by ARABELLA MARCOS, SUSI ([id number]) on 04/26/2019 11:54:50 AM Referred By: Confirmed By:SUSI BELL MD
--- NOTE | 2019-04-26 12:20 | ECHO ---
Name: TREMAINE, HAL Exam:Adult Echocardiogram Study Date: 04/26/2019 08:39 AM Age: 83 yrs Reason For Study: Cardiac DZ Height: 63 in Weight: 118 lb BSA: 1.5 m2 MMode/2D Measurements & Calculations IVSd: 1.0 cm Ao root diam: 2.5 cm LVIDd: 3.5 cm LA dimension: 3.9 cm LVIDs: 2.6 cm ACS: 1.6 cm LVPWd: 1.4 cm EDV(Teich): 50.1 ml LVOT diam: 1.8 cm ESV(Teich): 23.8 ml RV S Francisco: 13.6 cm/sec Doppler Measurements & Calculations MV E max francisco: 76.5 cm/sec Ao V2 max: 174.8 cm/sec MV A max francisco: 100.7 cm/sec Ao max P.2 mmHg MV E/A: 0.76 Ao V2 mean: 121.1 cm/sec MV dec time: 0.33 sec Ao mean P.5 mmHg Ao V2 VTI: 35.8 cm NORMA(I,D): 2.2 cm2 NORMA(V,D): 1.5 cm2 LV V1 max P.9 mmHg MR max francisco: 375.5 cm/sec LV V1 mean P.4 mmHg MR max P.4 mmHg LV V1 max: 110.2 cm/sec LV V1 mean: 88.2 cm/sec LV V1 VTI: 32.3 cm SV(LVOT): 78.5 ml TR max francisco: 225.9 cm/sec TR max P.2 mmHg PA V2 max: 82.4 cm/sec PI end-d francisco: 108.7 cm/sec PA max P.7 mmHg Med Peak E' Francisco: 9.7 cm/sec Med E/e': 7.8 Lat Peak E' Francisco: 11.4 cm/sec Lat E/e': 6.7 Procedure A complete two-dimensional transthoracic echocardiogram was performed (2D, M-mode, Doppler and color flow Doppler). Left Ventricle The left ventricular size, thickness and function are normal. The left ventricular ejection fraction is normal. Ejection Fraction = 60-65%. The left ventricular wall motion is normal. Right Ventricle The right ventricle is normal in size and function. Atria Normal left and right atrial size and function. Mitral Valve There is no mitral regurgitation noted. Tricuspid Valve No tricuspid regurgitation. There was insufficient TR detected to calculate RV systolic pressure. Aortic Valve The aortic valve is trileaflet. No hemodynamically significant valvular aortic stenosis. No aortic regurgitation is present. Pulmonic Valve Trace pulmonic valvular regurgitation. Great Vessels The aortic root is normal size. Pericardium/Pleura There is no pericardial effusion. Interpretation Summary The left ventricular size, thickness and function are normal The right ventricle is normal in size and function. Trace pulmonic valvular regurgitation. MD Wolfgang Reynolds 04/26/2019 12:19 PM
--- NOTE | 2019-04-26 15:02 | CON.CARD ---
Consult Consult Specialty:: Cardiology Referred by:: ER Reason for Consultation:: Preop evaluation - History of Present Illness Chief Complaint: leg pain History of Present Illness: 83 y/o F with a history of HTN, PAD s/p right AKA, smoker, NIDDM admitted from [facility] for further evaluation of LLE PAD and ulcer. She was recently seen by Dr Brown for worsening ulcer, found PAD on left side, now awaiting surgery. Echo 04/26/19 nlef normal valves. - History Source History Provided By: Patient, Medical Record - Alcohol/Substance Use Hx Alcohol Use: No - Smoking History Smoking history: Former smoker Have you smoked in the past 12 months: No Aproximately how many cigarettes per day: 5 Home Medications - Allergies Allergies/Adverse Reactions: Allergies Allergy/AdvReac Type Severity Reaction Status Date / Time No Known Allergies Allergy Verified 04/07/19 09:33 - Home Medications Home Medications: Ambulatory Orders Aa/Hydrolyzed Collagen, Whey [Lps Neutral Flavor Liquid] 30 ml PO BID 04/20/19 Acetaminophen [Tylenol .Extra-Strength -] 1,000 mg PO Q8H PRN 04/20/19 Ammonium Lactate Cream [Lac-Hydrin 12% Cream -] 1 appful TP BID 04/20/19 Ascorbic Acid [Vitamin C -] 1 tab PO DAILY 04/20/19 Aspirin [ASA -] 81 mg PO DAILY 04/20/19 Chlorhexidine Gluconate [Hibiclens For Decolonization -] 1 applic TP BID Lactobacillus Acidophilus [Bacid -] 1 tab PO BID 04/20/19 Magnesium Hydroxide [Milk of Magnesia] 30 ml PO DAILY PRN 04/20/19 Multivitamin [Multiple Vitamins] 1 tab PO DAILY 04/20/19 Mupirocin Ointment [Bactroban 2% Ointment -] 1 appful TP BID 04/20/19 Sennosides [Senna -] 1 tab PO DAILY PRN 04/20/19 Zinc 220 mg PO DAILY 04/20/19 Vital Signs: Vital Signs Temperature 98.1 F 04/26/19 14:24 Pulse Rate 59 L 04/26/19 14:24 Respiratory Rate 16 04/26/19 14:24 Blood Pressure 160/78 04/26/19 14:24 O2 Sat by Pulse Oximetry (%) 100 04/26/19 14:24 Constitutional: Yes: No Distress, Calm Eyes: Yes: EOM Intact HENT: Yes: Normocephalic Neck: Yes: Trachea Midline Respiratory: Yes: CTA Bilaterally Gastrointestinal: Yes: Normal Bowel Sounds, Soft Cardiovascular: Yes: Regular Rate and Rhythm JVD: No Carotid Bruit: No PMI: Non-Displaced Heart Sounds: Yes: S1, S2 Extremities: Yes: Amputation (rt aka), Erythema (lt lower leg with ulcer) Edema: No Peripheral Pulses WNL: No Peripheral Pulses: 1+ Left Popliteal, 1+ Left Doralis Pedis - Other Data Labs, Other Data: CBC, BMP 04/26/19 05:38 04/26/19 05:38 INR, PTT INR 1.05 (0.83-1.09) 04/25/19 20:25 Troponin, BNP 04/26/19 11:50 Troponin I < 0.02 Troponin, BNP 04/26/19 11:50 Troponin I < 0.02 Imaging - Results Chest X-ray: Report Reviewed (alejandro) EKG: Report Reviewed (sbrady nssttw changes) Assessment/Plan 83 y/o F with a history of HTN, PAD s/p right AKA, smoker, NIDDM admitted from [facility] for further evaluation of LLE PAD and ulcer. She was recently seen by Dr Brown for worsening ulcer, found PAD on left side, now awaiting surgery. Echo 04/26/19 nlef normal valves. Preop Cardiovascular Evaluation -There are no cardiac contraindications to surgery. She is at intermediate risk of perioperative events for open procedure, low risk for percutaneous procedure. No further cardiac testing is needed. -will see as needed.
[2019-04-27] MEDS: HEPARIN NA (PORCINE) 5,000 UNITS/ML 1ML VIAL SQ SCH ×3 (06:06→21:26)
[2019-04-27] MEDS: INSULIN SLIDING SCALE (NOVOLOG) 1 VIAL SQ SCH ×4 (06:09→21:29)
--- NOTE | 2019-04-27 09:45 | CONSULT ---
- Consultation REQUESTING PROVIDER: CONSULT REQUEST: We have been asked to surgically evaluate this patient for Left LE PAD/wound PCP:Richard Ochoa MD HISTORY OF PRESENT ILLNESS: HPI: 83 y/o F with hx of HTN, PAD s/p right AKA, DM presenting from [facility] for further evaluation of her LLE PAD and ulcer. She was last evaluated in the ED on 04/07 after presenting from [facility] due to a report of a left PT occlusion on arterial duplex. Ms Ventura reports that she has had redness and swelling in the left leg for the past 2 months, and she had a test completed on 04/06 that showed a blood clot. Per nursing staff at [facility], Ms Ventura has been on antibiotics for LLE cellulitis last month. . She states her leg swelling has been improving but her wound is the same. She denies fever, chills , chest pain, SOB, abd pain, n/v, joint pain. - Repeat arterial duplex on 04/07 with diffuse plaque, monophasic tracing with multiple stenotic lesions. Occlusion of the dsital SFA with reconstitution of flow in the pop. High grade focal stenosis in the MANAGER MAC and proximal popliteal. Flow detected in the BODY RECALL INSTRUCTOR. the case was reviewed with Dr Brown at the time who recommended outpatient f/u PMHx: as noted above ROS: as noted SHx: 3 cigarette/day use; no alcohol use; no rec drugs Allergies: NKDA ROS: GENERAL/CONSTITUTIONAL: No fever or chills. No weakness. HEAD, EYES, EARS, NOSE AND THROAT: No change in vision. No ear pain or discharge. No sore throat. CARDIOVASCULAR: No chest pain or shortness of breath RESPIRATORY: No cough, wheezing, or hemoptysis. GASTROINTESTINAL: No nausea, vomiting, diarrhea or constipation. GENITOURINARY: No dysuria, frequency, or change in urination. MUSCULOSKELETAL: No joint or muscle swelling or pain. No neck or back pain. SKIN: +LLE wound and redness NEUROLOGIC: No headache, vertigo, loss of consciousness, or change in strength/ sensation. ENDOCRINE: No increased thirst. No abnormal weight change HEMATOLOGIC/LYMPHATIC: No anemia, easy bleeding, or history of blood clots. ALLERGIC/IMMUNOLOGIC: No hives or skin allergy. PE: GENERAL: Awake, alert, and fully oriented, no acute distress HEAD: No signs of trauma, normocephalic, atraumatic EYES: sclera anicteric, conjunctiva clear NECK: Normal ROM, LUNGS: unlabored resp on RA, no auditory wheezes, MUSCULOSKELETAL: RLE AKA. LLE with 1+ pitting edema, diffuse erythema extending from ankle to mid calf. Stage 2 Ulcerated wound over posterior distal 3rd @3x4cm irregular, without bleeding or drainage, no foul odor. no signal on doppler over DP or PT. gross sensation intact, ROM intact NEUROLOGICAL: Cranial nerves II through XII grossly intact. Normal speech, normal gait, no focal sensorimotor deficits SKIN: Warm, Dry, normal turgor, no rashes or lesions noted CTA aorta with B/L LE runoff: Right: s/p right AKA with occlusion or R external iliac, common femoral and superficial arteries 50-70% Left EIA stenosis and 70-90% o Left MANAGER MAC and occlusion of SFA with reconstitution of flow in the left popliteal artery which demonstrate multifocal severe disease with more than 90% stenosis and focal short segmental occlusion of Left TP trunk, peroneal artery and BODY RECALL INSTRUCTOR wtih single runoff to the foot via CHANTEL. Problem List - Problems (1) Peripheral arterial disease Assessment/Plan: 83yo with PAD s/p right AKA and now with arterial insufficiency of left LE and wound. Patient will need angiogram with possible angioplasty. -Angiogram with angioplasty left LE 04/[address] Brown -continue ABX per ID -local wound care as ordered -DVT prophylaxis -Medical clearance optimization -NPO after midnight 04/30 for OR Evaluation and plan discussed with Dr Brown. Code(s): I73.9 - PERIPHERAL VASCULAR DISEASE, UNSPECIFIED
--- NOTE | 2019-04-27 09:47 | PN ---
Progress Note (short form) - Note Progress Note: Pt seen/ examined chart is reviewed awake/ comfortable no distress mild pain in left lower extremity - otherwise ok Denies cp/sob/abd pain. Vital Signs Temp 98.3 F 04/27/19 05:00 Pulse 56 L 04/27/19 05:00 Resp 16 04/27/19 05:00 BP 145/64 04/27/19 05:00 Pulse Ox 98 04/26/19 21:00 Intake & Output 04/26/19 04/26/19 04/27/19 11:59 23:59 11:59 Intake Total 1200 Balance 1200 Weight 118 lb Intake: Oral 1200 Other: Voiding Method Toilet # Unmeasured Voids Void 2 0 Bowel Movement No No Height 5 ft 3 in Body Mass Index (BMI) 20.9 Active Medications Collagenase (Santyl -) 1 applic TP DAILY [facility]; Protocol Last Admin: 04/26/19 11:38 Dose: 1 applic Heparin Sodium (Porcine) (Heparin -) 5,000 unit SQ TID [facility] Last Admin: 04/27/19 06:06 Dose: 5,000 unit Insulin Aspart (Novolog Vial Sliding Scale -) 1 vial SQ ACHS [facility]; Protocol Last Admin: 04/27/19 06:09 Dose: Not Given Lactic Acid (Lac-Hydrin 12% Cream -) 1 applic TP BID [facility] Last Admin: 04/26/19 21:39 Dose: Not Given Lactobacillus Acidophilus (Bacid -) 1 tab PO BID [facility] Last Admin: 04/26/19 21:39 Dose: Not Given Senna (Senna -) 1 tab PO DAILY PRN PRN Reason: CONSTIPATION CBC, BMP 04/26/19 05:38 04/26/19 05:38 Physical Exam S1 S2 RRR Lungs clear Abd-soft, NT edema left leg-- erythema, not warm or tender Right AKA ulcer in posterior left leg PLAN Aorta with CTA done-- Noted - Severe atherosclerotic. Vascualr to follow CXR - negative for infiltrate or congestion sono negative for DVT Echo pending ekg- sinus bradycardia-- same as previous Cardiology eval noted continue with meds heparin sc for DVT prophylaxis. Monitor bgm will follow Problem List - Problems (1) Diabetes Code(s): E11.9 - TYPE 2 DIABETES MELLITUS WITHOUT COMPLICATIONS (2) Peripheral arterial occlusive disease Code(s): I77.9 - DISORDER OF ARTERIES AND ARTERIOLES, UNSPECIFIED (3) Right above-knee amputee Code(s): Z89.611 - ACQUIRED ABSENCE OF RIGHT LEG ABOVE KNEE (4) Peripheral arterial disease Code(s): I73.9 - PERIPHERAL VASCULAR DISEASE, UNSPECIFIED
[2019-04-27] MEDS: LACTOBACILLUS ACIDOPHILUS 1 TABLET PO SCH ×2 (10:49→21:29)
[2019-04-27] MEDS: COLLAGENASE CLOSTRIDIUM HIST. 30 GRAMS TUBE TP SCH (11:12)
[2019-04-27] MEDS: AMMONIUM LACTATE 12% CREAM 140 GM TUBE TP SCH ×2 (11:12→21:29)
[2019-04-27] MEDS ORDERED: INSULIN (NOVOLOG) ASPART 100 UNITS/ML 10ML VIAL ONE (21:12)
[2019-04-28] MEDS: HEPARIN NA (PORCINE) 5,000 UNITS/ML 1ML VIAL SQ SCH ×3 (05:47→21:35)
[2019-04-28] MEDS: INSULIN SLIDING SCALE (NOVOLOG) 1 VIAL SQ SCH ×4 (06:16→21:35)
[2019-04-28] MEDS: AMMONIUM LACTATE 12% CREAM 140 GM TUBE TP SCH ×2 (10:21→21:36)
[2019-04-28] MEDS: LACTOBACILLUS ACIDOPHILUS 1 TABLET PO SCH ×2 (10:22→21:35)
[2019-04-28] MEDS: COLLAGENASE CLOSTRIDIUM HIST. 30 GRAMS TUBE TP SCH (10:22)
--- NOTE | 2019-04-28 12:58 | PN ---
Progress Note (short form) - Note Progress Note: no c/o pain in left leg sitting up in chair events noted Vital Signs - 24 hr 04/27/19 04/27/19 04/27/19 15:32 18:25 21:00 Temperature 99.0 F 98.6 F Pulse Rate 73 74 Respiratory 18 19 18 Rate Blood Pressure 144/55 L 147/62 O2 Sat by Pulse 973 H Oximetry (%) 04/27/19 04/28/19 04/28/19 22:00 02:00 09:00 Temperature 98.6 F 98.2 F 97.9 F Pulse Rate 65 71 63 Respiratory 18 20 18 Rate Blood Pressure 152/82 149/83 154/66 O2 Sat by Pulse Oximetry (%) Current Medications Generic Name Dose Route Start Last Admin Trade Name Freq PRN Reason Stop Dose Admin Collagenase 1 applic 04/25/19 18:45 04/28/19 10:22 Santyl - TP 1 applic DAILY [facility] Administration Protocol Heparin Sodium (Porcine) 5,000 unit 04/25/19 22:00 04/28/19 05:47 Heparin - SQ Not Given TID [facility] Cefazolin Sodium 1 gm in 50 mls @ 100 mls/hr 04/28/19 13:45 Ancef 1 Gm Premixed Ivpb - IVPB Q8H-IV [facility] Insulin Aspart 1 vial 04/25/19 22:00 04/28/19 11:54 Novolog Vial Sliding Scale - SQ Not Given ACHS [facility] Protocol Lactic Acid 1 applic 04/25/19 22:00 04/28/19 10:21 Lac-Hydrin 12% Cream - TP 1 applic BID [facility] Administration Lactobacillus Acidophilus 1 tab 04/25/19 22:00 04/28/19 10:22 Bacid - PO 1 tab BID [facility] Administration Senna 1 tab 04/25/19 18:35 Senna - PO DAILY PRN CONSTIPATION Laboratory Results - last 24 hr 04/27/19 04/27/19 04/28/19 17:28 21:27 06:02 POC Glucometer 93 87 84 04/28/19 11:52 POC Glucometer 81 S1 S2 RRR Lungs clear Abd-soft, NT edema left leg-- erythema, not warm or tender Right AKA ulcer in posterior left leg PLAN Aorta with CTA done-- report pending CXR - negative for infiltrate or congestion sono negative for DVT Echo normal ekg- sinus bradycardia-- same as previous Cardiology eval for clearance-->cleared patient vascular eval noted-- for angiogram on Tuesday pt is medically cleared start Iv Ancef for wound heparin sc for DVT prophylaxis Problem List - Problems (1) Diabetes Code(s): E11.9 - TYPE 2 DIABETES MELLITUS WITHOUT COMPLICATIONS (2) Peripheral arterial occlusive disease Code(s): I77.9 - DISORDER OF ARTERIES AND ARTERIOLES, UNSPECIFIED (3) Right above-knee amputee Code(s): Z89.611 - ACQUIRED ABSENCE OF RIGHT LEG ABOVE KNEE (4) Peripheral arterial disease Code(s): I73.9 - PERIPHERAL VASCULAR DISEASE, UNSPECIFIED
[2019-04-28] MEDS ORDERED: ceFAZolin SODIUM 1 GM VIAL ONE ×2 (14:23→17:12)
[2019-04-28] MEDS ORDERED: DEXTROSE 5%-WATER - 50 ML IVPB ONE ×2 (14:24→17:12)
[2019-04-28] MEDS: CEFAZOLIN 1 GM in DEXTROSE 5%-WATER - 50 ML IVPB SCH ×2 (14:40→17:17)
[2019-04-29] MEDS ORDERED: DEXTROSE 5%-WATER - 50 ML IVPB ONE ×3 (02:42→16:49)
[2019-04-29] MEDS ORDERED: ceFAZolin SODIUM 1 GM VIAL ONE ×3 (02:42→16:49)
[2019-04-29] MEDS: CEFAZOLIN 1 GM in DEXTROSE 5%-WATER - 50 ML IVPB SCH ×3 (02:48→17:07)
[2019-04-29] MEDS: HEPARIN NA (PORCINE) 5,000 UNITS/ML 1ML VIAL SQ SCH ×3 (06:10→23:07)
[2019-04-29] MEDS: INSULIN SLIDING SCALE (NOVOLOG) 1 VIAL SQ SCH ×4 (06:10→23:16)
[2019-04-29] MEDS: LACTOBACILLUS ACIDOPHILUS 1 TABLET PO SCH ×2 (09:46→23:06)
[2019-04-29] MEDS: COLLAGENASE CLOSTRIDIUM HIST. 30 GRAMS TUBE TP SCH (11:48)
[2019-04-29] MEDS: AMMONIUM LACTATE 12% CREAM 140 GM TUBE TP SCH ×2 (11:58→23:07)
--- NOTE | 2019-04-29 19:13 | PN ---
Progress Note (short form) - Note Progress Note: no c/o pain in left leg sitting up in chair events noted Vital Signs - 24 hr 04/28/19 04/28/19 04/29/19 21:00 22:00 06:00 Temperature 98.8 F Pulse Rate 56 L 57 L Respiratory 20 20 18 Rate Blood Pressure 132/62 151/65 O2 Sat by Pulse 98 Oximetry (%) 04/29/19 04/29/19 04/29/19 08:56 09:00 14:00 Temperature 97.8 F 98.7 F Pulse Rate 84 61 Respiratory 18 18 18 Rate Blood Pressure 144/79 130/57 L O2 Sat by Pulse 97 Oximetry (%) 04/29/19 18:00 Temperature 98.8 F Pulse Rate 52 L Respiratory 18 Rate Blood Pressure 143/54 L O2 Sat by Pulse Oximetry (%) Current Medications Generic Name Dose Route Start Last Admin Trade Name Freq PRN Reason Stop Dose Admin Collagenase 1 applic 04/25/19 18:45 04/29/19 11:48 Santyl - TP 1 applic DAILY [facility] Administration Protocol Heparin Sodium (Porcine) 5,000 unit 04/25/19 22:00 04/29/19 14:15 Heparin - SQ 5,000 unit TID [facility] Administration Cefazolin Sodium 1 gm/ 50 mls @ 100 mls/hr 04/28/19 13:45 04/29/19 17:07 Dextrose IVPB 100 mls/hr Q8H-IV [facility] Administration Insulin Aspart 1 vial 04/25/19 22:00 04/29/19 16:32 Novolog Vial Sliding Scale - SQ Not Given ACHS [facility] Protocol Lactic Acid 1 applic 04/25/19 22:00 04/29/19 11:58 Lac-Hydrin 12% Cream - TP Not Given BID [facility] Lactobacillus Acidophilus 1 tab 04/25/19 22:00 04/29/19 09:46 Bacid - PO 1 tab BID [facility] Administration Senna 1 tab 04/25/19 18:35 Senna - PO DAILY PRN CONSTIPATION Laboratory Results - last 24 hr 04/28/19 04/29/19 04/29/19 21:33 06:08 11:00 POC Glucometer 121 90 102 04/29/19 16:17 POC Glucometer 94 S1 S2 RRR Lungs clear Abd-soft, NT edema left leg-- erythema, not warm or tender Right AKA ulcer in posterior left leg PLAN Aorta with CTA done-- report pending CXR - negative for infiltrate or congestion sono negative for DVT Echo normal ekg- sinus bradycardia-- same as previous Cardiology eval for clearance-->cleared patient vascular eval noted-- for angiogram on Tuesday pt is medically cleared on Iv Ancef for wound heparin sc for DVT prophylaxis Problem List - Problems (1) Diabetes Code(s): E11.9 - TYPE 2 DIABETES MELLITUS WITHOUT COMPLICATIONS (2) Peripheral arterial occlusive disease Code(s): I77.9 - DISORDER OF ARTERIES AND ARTERIOLES, UNSPECIFIED (3) Right above-knee amputee Code(s): Z89.611 - ACQUIRED ABSENCE OF RIGHT LEG ABOVE KNEE (4) Peripheral arterial disease Code(s): I73.9 - PERIPHERAL VASCULAR DISEASE, UNSPECIFIED
[2019-04-30] MEDS ORDERED: ceFAZolin SODIUM 1 GM VIAL ONE ×3 (01:46→18:26)
[2019-04-30] MEDS ORDERED: DEXTROSE 5%-WATER - 50 ML IVPB ONE ×3 (01:47→18:26)
[2019-04-30] MEDS: CEFAZOLIN 1 GM in DEXTROSE 5%-WATER - 50 ML IVPB SCH ×5 (02:10→18:59)
[2019-04-30] MEDS: INSULIN SLIDING SCALE (NOVOLOG) 1 VIAL SQ SCH ×4 (06:59→22:37)
[2019-04-30] MEDS: LACTOBACILLUS ACIDOPHILUS 1 TABLET PO SCH ×2 (10:30→22:33)
--- NOTE | 2019-04-30 11:17 | PN ---
Progress Note (short form) - Note Progress Note: pt seen/examined chart is reviewed awake/ comfortable for OR today Sitting in chair Vital Signs Temp 97.9 F 04/30/19 10:23 Pulse 54 L 04/30/19 10:23 Resp 20 04/30/19 10:23 BP 127/66 04/30/19 10:23 Pulse Ox 97 04/29/19 21:00 Intake & Output 04/29/19 04/29/19 04/30/19 11:59 23:59 11:59 Intake Total 300 900 Balance 300 900 Intake: IVPB 100 100 Oral 200 800 Other: Voiding Method Toilet Toilet # Unmeasured Voids Void 2 3 2 Bowel Movement No Yes No Active Medications Collagenase (Santyl -) 1 applic TP DAILY [facility]; Protocol Last Admin: 04/29/19 11:48 Dose: 1 applic Heparin Sodium (Porcine) (Heparin -) 5,000 unit SQ TID [facility] Last Admin: 04/29/19 23:07 Dose: Not Given Cefazolin Sodium 1 gm/ (Dextrose) 50 mls @ 100 mls/hr IVPB Q8H-IV [facility] Last Admin: 04/30/19 10:34 Dose: 100 mls/hr Insulin Aspart (Novolog Vial Sliding Scale -) 1 vial SQ ACHS [facility]; Protocol Last Admin: 04/30/19 06:59 Dose: Not Given Lactic Acid (Lac-Hydrin 12% Cream -) 1 applic TP BID [facility] Last Admin: 04/29/19 23:07 Dose: Not Given Lactobacillus Acidophilus (Bacid -) 1 tab PO BID [facility] Last Admin: 04/30/19 10:30 Dose: Not Given Senna (Senna -) 1 tab PO DAILY PRN PRN Reason: CONSTIPATION CBC, BMP 04/26/19 05:38 04/26/19 05:38 Physical Exam . Awake/ comfortable S1 S2 RRR Lungs clear Abd-soft, NT edema left leg-- erythema, not warm or tender Right AKA ulcer in posterior left leg PLAN stable for OR today Will follow Problem List - Problems (1) Diabetes Code(s): E11.9 - TYPE 2 DIABETES MELLITUS WITHOUT COMPLICATIONS (2) Peripheral arterial occlusive disease Code(s): I77.9 - DISORDER OF ARTERIES AND ARTERIOLES, UNSPECIFIED (3) Right above-knee amputee Code(s): Z89.611 - ACQUIRED ABSENCE OF RIGHT LEG ABOVE KNEE (4) Peripheral arterial disease Code(s): I73.9 - PERIPHERAL VASCULAR DISEASE, UNSPECIFIED
[2019-04-30] MEDS: AMMONIUM LACTATE 12% CREAM 140 GM TUBE TP SCH ×2 (11:43→22:37)
[2019-04-30] MEDS: COLLAGENASE CLOSTRIDIUM HIST. 30 GRAMS TUBE TP SCH ×2 (12:09→19:11)
[2019-04-30] MEDS ORDERED: LIDOCAINE HCL/PF 2% SDV 5ML VIAL ONE (13:28)
[2019-04-30] MEDS ORDERED: MIDAZOLAM HCL 2 MG/2 ML SINGLE DOSE VIAL ONE (13:28)
[2019-04-30] MEDS ORDERED: PROPOFOL 20 ML ONE ×2 (13:28→14:34)
[2019-04-30] MEDS ORDERED: ROCURONIUM BROMIDE 50 MG/5 ML SYRINGE ONE (13:48)
[2019-04-30] MEDS ORDERED: HEPARIN NA (PORCINE) 5,000 UNITS/ML 1ML VIAL ONE (14:03)
[2019-04-30] MEDS ORDERED: DEXAMETHASONE SOD PHOSPHATE 4 MG/1 ML VIAL ONE (14:15)
[2019-04-30] MEDS ORDERED: EPHEDRINE SULFATE/0.9% NACL/PF 50 MG/10 ML SYRINGE NR ONE (14:33)
[2019-04-30] MEDS ORDERED: NEOSTIGMINE METHYLSULFATE 0.5 MG/ML - 10 ML MDV ONE (14:37)
--- NOTE | 2019-04-30 14:56 | OP ---
Operative Note - Note: Operative Date: 04/30/19 Pre-Operative Diagnosis: left leg ulcer Operation: attempted angiogram via popliteal approach Findings: Vessel not open. cannot be visualized. Iliac and sfa closed on CTA Post-Operative Diagnosis: Same as Pre-op Surgeon: Todd Brown Anesthesia: Fractional Estimated Blood Loss (mls): 10 Operative Report Dictated: Yes
--- NOTE | 2019-04-30 14:58 | PN ---
Progress Note (short form) - Note Progress Note: Vascular Surgery Attempted angiogram of left leg. Unable to cannulate left leg popliteal artery SFA and iliac artery closed bl. Would do conservative therapy. Medical management. Wound care appts Todd trujillo DO
[2019-04-30] MEDS ORDERED: SENNOSIDES 8.6MG TABLET (FP) PO PRN (15:08)
[2019-04-30] MEDS ORDERED: hydrALAZINE HCL 20 MG/ML VIAL ONE (15:52)
[2019-04-30] MEDS: HEPARIN NA (PORCINE) 5,000 UNITS/ML 1ML VIAL SQ SCH ×2 (20:41→22:33)
[2019-05-01] MEDS ORDERED: DEXTROSE 5%-WATER - 50 ML IVPB ONE ×2 (01:14→09:03)
[2019-05-01] MEDS ORDERED: ceFAZolin SODIUM 1 GM VIAL ONE ×2 (01:14→09:03)
[2019-05-01] MEDS: CEFAZOLIN 1 GM in DEXTROSE 5%-WATER - 50 ML IVPB SCH ×2 (02:13→09:15)
[2019-05-01] MEDS: HEPARIN NA (PORCINE) 5,000 UNITS/ML 1ML VIAL SQ SCH ×2 (06:08→13:30)
[2019-05-01] MEDS: INSULIN SLIDING SCALE (NOVOLOG) 1 VIAL SQ SCH ×2 (06:08→11:29)
[2019-05-01] MEDS: LACTOBACILLUS ACIDOPHILUS 1 TABLET PO SCH (09:16)
[2019-05-01 09:37] VITALS: BP 144/77; PULSE 58; TEMP 97.4
--- NOTE | 2019-05-01 10:06 | PN ---
Progress Note (short form) - Note Progress Note: 83F s/p LE angiogram under GA. pt reports no pain. no comps. good result anesthetic care.
--- NOTE | 2019-05-01 12:13 | DS ---
Physical Examination Vital Signs: Vital Signs Temperature 97.4 F L 05/01/19 09:36 Pulse Rate 58 L 05/01/19 09:36 Respiratory Rate 18 05/01/19 09:36 Blood Pressure 144/77 05/01/19 09:36 O2 Sat by Pulse Oximetry (%) 100 05/01/19 09:00 Constitutional: Yes: No Distress, Calm Cardiovascular: Yes: Regular Rate and Rhythm Respiratory: Yes: CTA Bilaterally Gastrointestinal: Yes: Normal Bowel Sounds, Soft. No: Tenderness Extremities: Yes: Other (rt amputation) Edema: Yes Edema: LLE: 1+ Labs: CBC, BMP 04/26/19 05:38 04/26/19 05:38 Discharge Summary Problems reviewed: Yes Reason For Visit: PERIPHERAL ARTERIAL DISEASE Current Active Problems Diabetes (Acute) Non-healing ulcer (Acute) PAD (peripheral artery disease) (Acute) Peripheral arterial occlusive disease (Acute) Right above-knee amputee (Acute) Hospital Course: Admitted-- non healing wound left leg Seen by Cardiology and vascular-- CT A aorta done Angiogram was done-- unable to cannulate the left popliteal artery medical management advised was on iv antibiotics She was seen by cardiology for clearance Cardiac maharaj stable She is stable for dc home ] Condition: Stable - Instructions Disposition: LONG-TERM FACILITY - Home Medications Comprehensive Discharge Medication List: Ambulatory Orders Aa/Hydrolyzed Collagen, Whey [Lps Neutral Flavor Liquid] 30 ml PO BID 04/20/19 Acetaminophen [Tylenol .Extra-Strength -] 1,000 mg PO Q8H PRN 04/20/19 Ammonium Lactate Cream [Lac-Hydrin 12% Cream -] 1 appful TP BID 04/20/19 Ascorbic Acid [Vitamin C -] 1 tab PO DAILY 04/20/19 Aspirin [ASA -] 81 mg PO DAILY 04/20/19 Chlorhexidine Gluconate [Hibiclens For Decolonization -] 1 applic TP BID Lactobacillus Acidophilus [Bacid -] 1 tab PO BID 04/20/19 Magnesium Hydroxide [Milk of Magnesia] 30 ml PO DAILY PRN 04/20/19 Multivitamin [Multiple Vitamins] 1 tab PO DAILY 04/20/19 Mupirocin Ointment [Bactroban 2% Ointment -] 1 appful TP BID 04/20/19 Sennosides [Senna -] 1 tab PO DAILY PRN 04/20/19 Zinc 220 mg PO DAILY 04/20/19
[2019-05-01] MEDS: COLLAGENASE CLOSTRIDIUM HIST. 30 GRAMS TUBE TP SCH (13:30)
[2019-05-01] MEDS: AMMONIUM LACTATE 12% CREAM 140 GM TUBE TP SCH (13:37)
== END 2019-05-01 14:50 | DRG 197 ==
LOC: EDBD 12:28 → JER 12:28 → JERBED 18:38 → J5S 04-26 14:57
PROVIDERS: ADMIT Internal Medicine; ATTEND Internal Medicine
PROC: B41GZZZ Fluoroscopy of Left Lower Extremity Arteries (ICD-10-PCS; principal; 2019-04-30 13:00)
DX: E11.51 Type 2 diabetes mellitus with diabetic peripheral angiopathy without gangrene (principal); I70.202 Unspecified atherosclerosis of native arteries of extremities, left leg; L97.928 Non-pressure chronic ulcer of unspecified part of left lower leg with other specified severity; E11.622 Type 2 diabetes mellitus with other skin ulcer; I10 Essential (primary) hypertension; R00.1 Bradycardia, unspecified; Z89.611 Acquired absence of right leg above knee; I77.9 Disorder of arteries and arterioles, unspecified
CPT/HCPCS: 36415; 71045-TC-FY; 75635-TC; 76000-TC-FY; 80053; 80061; 82550; 82962; 83036; 83721; 83735; 84100; 84484; 85025; 85610; 85651; 85730; 86140; 86850; 86900; 86901; 93005; 93010; 93306-TC; 93971-TC; 94760; 99284-25; J1644; Q9967